=== PATIENT | male | born 1970 | race African-American/Black ===

== ENCOUNTER 2018-10-12 17:47 | Inpatient (IN) | payer MEDICAID, OTHER ==
[~2018-10-12] VITALS: Ht 177.8 cm; Wt 67.6 kg
[~2018-10-12 17:47] MED LIST: MEDR10TA PO; PREM125 PO
[2018-10-12 18:41] LABS: BASOPHILS % (AUTO) 0.9 % (0.0-2.0); EOSINOPHILS % (AUTO) 2.2 % (1.0-6.0); HEMATOCRIT 41.8 % (41-53); LYMPHOCYTES % (AUTO) 44.2 % (22.0-44.0); MEAN CORPUSCULAR HEMOGLOBIN 29.1 pg (26.0-34.0); MEAN CORPUSCULAR HGB CONC 33.4 G/dL (31.0-37.0); MEAN CORPUSCULAR VOLUME 87 fL (80-100); MONOCYTES # (AUTO) 0.4 K/uL (0.1-1.0); MONOCYTES % (AUTO) 9.1 % (2.0-9.0); NEUTROPHILS % (AUTO) 43.6 % (40.0-70.0); PLATELET COUNT (AUTO) 286 K/uL (150-450); RED BLOOD CELL COUNT(AUTO) 4.79 MIL/uL (4.50-5.90)
[2018-10-12 18:48] LABS: ANION GAP 5 mmol/L (8-16); CALCIUM, TOTAL 9.6 mg/dL (8.8-10.5); CARBON DIOXIDE 30 mmol/L (22-29); CHLORIDE 102 mmol/L (98-107); GLOMERULAR FILTR. RATE CALC > 60 mL/min (>60); GLUCOSE,RANDOM 76 mg/dL (70-110); POTASSIUM 4.1 mmol/L (3.5-5.1); SODIUM SERUM 137 mmol/L (136-145); UREA NITROGEN, BLOOD 15 mg/dL (7-18)
[2018-10-12 18:54] LABS: ALANINE AMINOTRANSFERASE 34 U/L (12-78); ALBUMIN 4.2 g/dL (3.4-5.0); ALKALINE PHOSPHATASE 78 U/L (46-116); ASPARTATE AMINOTRANSFERASE 30 U/L (15-37); BILIRUBIN,TOTAL 0.6 mg/dL (0.1-1.0); TOTAL PROTEIN, SERUM 7.8 g/dL (6.4-8.2)
[2018-10-12] MEDS ORDERED: ZOLPIDEM TARTRATE 10 MG TABLET PO PRN (20:15)
[2018-10-12 20:59] LABS: CHOL/HDL RATIO 2.6 (4.2-7.3); CHOLESTEROL 172 mg/dL (131-200); FREE T4 (FREE THYROXINE) 0.76 ng/dL (0.76-1.46); HDL CHOLESTEROL 66 mg/dL (40-60); LDL CHOL (CALC.) 90 mg/dL (0-130); THYROID STIMULATING HORMONE 1.77 uIU/mL (0.36-3.74); TRIGLYCERIDES 81 mg/dL (15-150)
[2018-10-12 21:20] VITALS: BP 149/98
[2018-10-12 22:00] VITALS: BP 149/98
[2018-10-13 03:15] VITALS: BP 150/109
[2018-10-13] MEDS: LORazepam 2 MG TABLET PO PRN (03:16)
[2018-10-13] MEDS: HALOPERIDOL 5 MG TABLET PO PRN (03:16)
[2018-10-13 08:03] VITALS: BP 152/96
[2018-10-13] MEDS: RisperiDONE 1 MG TABLET PO SCH ×2 (10:18→16:37)
[2018-10-13] MEDS: SERTRALINE HCL 50 MG TABLET PO SCH (10:18)
[2018-10-13] MEDS ORDERED: GuaiFENesin/D-METHORPHAN [SUGAR-FREE] 200-20MG/10 ML SYRUP UDCUP PO PRN (16:00)
[2018-10-13] MEDS ORDERED: MAGNESIUM HYDROXIDE SUSPENSION 30 ML UDCUP PO PRN (16:00)
[2018-10-13] MEDS ORDERED: CloNIDine HCL 0.1 MG TABLET PO PRN (16:00)
[2018-10-13] MEDS ORDERED: MAG HYDROX/AL HYDROX/SIMETH ES 30 ML SUSPENSION UDCUP PO PRN (16:00)
[2018-10-13] MEDS ORDERED: DOCUSATE SODIUM 100 MG CAPSULE PO PRN (16:00)
[2018-10-13] MEDS ORDERED: ONDANSETRON HCL 4 MG TABLET PO PRN (16:00)
[2018-10-13] MEDS ORDERED: PETROLATUM,WHITE 28 GM JELLY TP PRN (16:00)
[2018-10-13] MEDS ORDERED: LOPERAMIDE HCL 2 MG CAPSULE PO PRN (16:00)
[2018-10-13] MEDS ORDERED: NICOTINE 14 MG/24 HOUR PATCH TD PRN (16:00)
[2018-10-13] MEDS ORDERED: ALBUTEROL SULFATE HFA 90 MCG/PUFF 8 GM INHALER IH PRN (16:00)
[2018-10-13] MEDS ORDERED: ACETAMINOPHEN 325 MG TABLET PO PRN (16:00)
[2018-10-13] MEDS: AmLODIPine BESYLATE 2.5 MG TABLET PO SCH (16:37)
[2018-10-13 17:16] VITALS: BP 125/76
[2018-10-14 02:48] VITALS: BP 105/75
[2018-10-14] MEDS: LORazepam 2 MG TABLET PO PRN (02:50)
[2018-10-14 08:11] VITALS: BP 128/80
[2018-10-14] MEDS: RisperiDONE 1 MG TABLET PO SCH ×2 (09:49→16:22)
[2018-10-14] MEDS: AmLODIPine BESYLATE 2.5 MG TABLET PO SCH (09:49)
[2018-10-14] MEDS: SERTRALINE HCL 50 MG TABLET PO SCH (09:49)
[2018-10-14 18:08] VITALS: BP 116/73
[2018-10-15 08:22] VITALS: BP 127/94
[2018-10-15] MEDS: AmLODIPine BESYLATE 2.5 MG TABLET PO SCH (09:22)
[2018-10-15] MEDS: SERTRALINE HCL 50 MG TABLET PO SCH (09:22)
[2018-10-15] MEDS: RisperiDONE 1 MG TABLET PO SCH ×2 (09:22→16:20)
[2018-10-15] MEDS: MedroxyPROGESTERone ACET 5 MG TABLET PO SCH (16:20)
[2018-10-15] MEDS: LORazepam 2 MG TABLET PO PRN (16:20)
[2018-10-15 16:28] VITALS: BP 116/77
[2018-10-16 08:55] VITALS: BP 110/75
[2018-10-16] MEDS: MedroxyPROGESTERone ACET 5 MG TABLET PO SCH ×2 (09:48→16:16)
[2018-10-16] MEDS: SERTRALINE HCL 50 MG TABLET PO SCH (09:48)
[2018-10-16] MEDS: AmLODIPine BESYLATE 2.5 MG TABLET PO SCH (09:48)
[2018-10-16] MEDS: RisperiDONE 1 MG TABLET PO SCH ×2 (09:48→16:15)
[2018-10-16] MEDS: LORazepam 2 MG TABLET PO PRN (16:15)
[2018-10-16 16:24] VITALS: BP 128/89
[2018-10-17 00:45] VITALS: BP 145/74
[2018-10-17] MEDS: AmLODIPine BESYLATE 2.5 MG TABLET PO SCH (09:05)
[2018-10-17] MEDS: SERTRALINE HCL 50 MG TABLET PO SCH (09:06)
[2018-10-17] MEDS: RisperiDONE 1 MG TABLET PO SCH ×2 (09:06→16:09)
[2018-10-17] MEDS: MedroxyPROGESTERone ACET 5 MG TABLET PO SCH ×2 (09:06→16:09)
[2018-10-17 12:54] VITALS: BP 134/91
[2018-10-17] MEDS: IBUPROFEN 400 MG TABLET PO PRN (15:01)
[2018-10-17 16:25] VITALS: BP 139/85
[2018-10-17] MEDS: LORazepam 2 MG TABLET PO PRN (16:45)
[2018-10-17] MEDS: HALOPERIDOL 5 MG TABLET PO PRN (16:45)
[2018-10-18 08:15] VITALS: BP 106/68
[2018-10-18] MEDS: RisperiDONE 1 MG TABLET PO SCH ×2 (09:37→16:06)
[2018-10-18] MEDS: AmLODIPine BESYLATE 2.5 MG TABLET PO SCH (09:37)
[2018-10-18] MEDS: MedroxyPROGESTERone ACET 5 MG TABLET PO SCH ×2 (09:37→16:06)
[2018-10-18] MEDS: SERTRALINE HCL 50 MG TABLET PO SCH (09:37)
[2018-10-18] MEDS: HALOPERIDOL 5 MG TABLET PO PRN (16:07)
[2018-10-18] MEDS: LORazepam 2 MG TABLET PO PRN (16:07)
[2018-10-18 17:26] VITALS: BP 129/70
[2018-10-19 01:28] VITALS: BP 137/107
[2018-10-19] MEDS: SERTRALINE HCL 50 MG TABLET PO SCH (08:29)
[2018-10-19] MEDS: RisperiDONE 1 MG TABLET PO SCH ×2 (08:29→16:11)
[2018-10-19] MEDS: AmLODIPine BESYLATE 2.5 MG TABLET PO SCH (08:29)
[2018-10-19] MEDS: MedroxyPROGESTERone ACET 5 MG TABLET PO SCH ×2 (08:30→16:11)
[2018-10-19 09:25] VITALS: BP 140/98
[2018-10-19 14:45] VITALS: BP 117/96
[2018-10-19] MEDS: IBUPROFEN 400 MG TABLET PO PRN (14:47)
[2018-10-19] MEDS: LORazepam 2 MG TABLET PO PRN (16:10)
[2018-10-19] MEDS: HALOPERIDOL 5 MG TABLET PO PRN (16:11)
[2018-10-19 17:27] VITALS: BP 123/85
[2018-10-20] MEDS: SERTRALINE HCL 50 MG TABLET PO SCH (08:47)
[2018-10-20] MEDS: RisperiDONE 1 MG TABLET PO SCH (08:47)
[2018-10-20] MEDS: AmLODIPine BESYLATE 2.5 MG TABLET PO SCH (08:47)
[2018-10-20] MEDS: MedroxyPROGESTERone ACET 5 MG TABLET PO SCH (08:48)
[2018-10-20] MEDS ORDERED: SERT50TA12 PO (10:27)
[2018-10-20] MEDS ORDERED: RISP1 PO (10:27)
[2018-10-20] MEDS ORDERED: AMLO2.5T4 PO (10:31)
[2018-10-20] MEDS ORDERED: PROV5 PO (10:31)
[2018-10-20 13:23] VITALS: BP 118/71
== END 2018-10-20 15:20 | disposition home or self-care (01) | DRG 753 ==
LOC: EMS 17:47 → 3EI 20:00
PROVIDERS: ADMIT Psychiatry & Neurology Child & Adolescent Psychiatry; ATTEND Psychiatry & Neurology Child & Adolescent Psychiatry
DX: F31.4 Bipolar disorder, current episode depressed, severe, without psychotic features (principal); R45.851 Suicidal ideations; F41.9 Anxiety disorder, unspecified; G44.209 Tension-type headache, unspecified, not intractable; I10 Essential (primary) hypertension; F15.90 Other stimulant use, unspecified, uncomplicated; F64.9 Gender identity disorder, unspecified; F19.10 Other psychoactive substance abuse, uncomplicated; Z71.51 Drug abuse counseling and surveillance of drug abuser
CPT/HCPCS: 83036; 84439; 84443; G0480